=== PATIENT | male | born 1975 | race Caucasian/White ===

== ENCOUNTER 2017-03-25 11:23 | Day surgery (SDC) | payer OTHER ==
[2017-03-24 09:22] VITALS: BMI 28.1
[~2017-03-25 11:23] MED LIST: LACTATED RINGERS 1,000 ML IV SCH; LIDOCAINE 1% 20 ML VIAL (10MG/ML) FOR IV START INTRADERMA PRN
[2017-03-25 11:57] VITALS: TEMP 97.7
[2017-03-25] MEDS ORDERED: PROPOFOL 10 MG/ML 20 ML VIAL IV ONE (14:33)
[2017-03-25] MEDS ORDERED: LIDOCAINE 1% INJ 10MG/ML (20 ML MDV) ONE (14:33)
--- NOTE | 2017-03-25 14:36 | P.GSHP ---
History of Present Illness H&P Date: 03/25/17 Chief Complaint: GERD Is a 41-year-old male who presents today for EGD. He's had issues with GERD. He's had a previous EGD several years ago which shows evidence of GERD and hiatal hernia. His GERD symptoms have worsened. Past Medical History Past Medical History: GERD/Reflux Additional Past Medical History / Comment(s): HX STOMACH ULCERS, BACK PAIN, HX OF KIDNEY STONE- STATES KIDNEY DEFECT. . History of Any Multi-Drug Resistant Organisms: None Reported Additional Past Surgical History / Comment(s): EGD, CYSTOSCOPY WITH LITHOTRIPSY Past Anesthesia/Blood Transfusion Reactions: No Reported Reaction, Motion Sickness Past Psychological History: No Psychological Hx Reported Smoking Status: Current some day smoker Past Alcohol Use History: Occasional Additional Past Alcohol Use History / Comment(s): QUIT SMOKING CIGARETTES 15 YEARS AGO, SMOKED 2-3 PPD. SMOKES A CIGAR OCCASIONALLY. Past Drug Use History: Marijuana Additional Drug Use History / Comment(s): OCCASIONAL MARIJUANA USE - Past Family History Mother Family Medical History: No Reported History Medications and Allergies Home Medications Medication Instructions Recorded Confirmed Type No Known Home Medications [No 03/24/17 03/25/17 History Known Home Medications] Allergies Allergy/AdvReac Type Severity Reaction Status Date / Time codeine Allergy Chest Pain Verified 03/25/17 11:57 blueberry AdvReac Rash/Hives Verified 03/25/17 11:57 Surgical - Exam Vital Signs Temp Pulse Resp BP Pulse Ox 97.7 F 67 16 132/86 96 03/25/17 11:56 03/25/17 11:56 03/25/17 11:56 03/25/17 11:56 03/25/17 11:56 - General well developed, no distress - Eyes PERRL - ENT normal pinna - Neck no masses - Respiratory normal expansion - Cardiovascular Rhythm: regular - Abdomen Abdomen: soft, non tender Assessment and Plan Plan: GERD. We'll perform EGD.
[2017-03-25 14:47] VITALS: RESP 18
--- NOTE | 2017-03-25 14:53 | P.OP ---
Date of Procedure: 03/25/17 Preoperative Diagnosis: GERD Postoperative Diagnosis: Antral gastritis Small hiatal hernia Mild esophagitis Procedure(s) Performed: EGD Implants: Anesthesia: MAC Surgeon: Oscar Damico Pathology: other (Antrum, esophagus) Condition: stable Disposition: PACU Indications for Procedure: Operative Findings: Description of Procedure: The patient's placed on the endoscopy table in the lateral position. He received IV sedation. The gastroscope placed oropharynx passed in the esophagus and stomach. Scope was then placed through the pylorus. The first and second portion of the duodenum appeared normal. The scope was then brought back the antrum and this appeared mildly inflamed. A biopsies performed. The scope was unretroflexed and remainder stomach appeared normal. There was a small hiatal hernia. The GE junction was at 47 is. The distal esophagus was minimal inflamed a biopsies performed. The proximal esophagus appeared normal. The scope was withdrawn for patient.
[2017-03-25 14:58] VITALS: BP 120/70; PULSE 65
== END 2017-03-25 15:36 | disposition home or self-care (01) ==
LOC: ORWHC2ENDO 11:23
PROVIDERS: ATTEND Surgery
DX: K21.9 Gastro-esophageal reflux disease without esophagitis (principal); K20.0 Eosinophilic esophagitis; K29.50 Unspecified chronic gastritis without bleeding; K44.9 Diaphragmatic hernia without obstruction or gangrene; F17.290 Nicotine dependence, other tobacco product, uncomplicated; Z88.5 Allergy status to narcotic agent; Z91.018 Allergy to other foods
CPT/HCPCS: 43239; 88305; 88342; J2001; J2704

== ENCOUNTER → 2017-03-28 | Outpatient (CLI) | payer OTHER ==
--- NOTE | 2017-03-29 07:57 | NM ---
Nuclear medicine hepatobiliary scan. HISTORY: Pain. The patient received 8 ounces of ensure plus and 5.5 mCi of Technetium 99m Choletec. There is normal hepatic extraction. The gallbladder is seen by 15 minutes. There is biliary to ramón l clearance by 20 minutes. Ejection fraction is 66%. IMPRESSION: 1. Normal hepatobiliary exam
== END ==
LOC: RADNMMAIN 14:35
PROVIDERS: ATTEND Surgery
DX: R10.9 Unspecified abdominal pain (principal)
CPT/HCPCS: 78226; A9537